=== PATIENT | female | born 1965 | race Caucasian/White ===

== ENCOUNTER 2020-12-01 18:15 | Emergency (ER) | payer OTHER ==
[2020-12-01] MEDS ORDERED: Ibuprofen 800 MG Tab PO ONE (19:43)
--- NOTE | 2020-12-01 19:47 | EDM.PDOC ---
ED [facility] GENERAL MEDICAL PROBLEM - General Chief Complaint: Upper Extremity Injury/Pain Stated Complaint: RT WRIST INJURY Time Seen by Provider: 12/01/20 18:28 Source of Information: Reports: Patient History Limitations: Reports: No Limitations - History of Present Illness INITIAL COMMENTS - FREE TEXT/NARRATIVE: 55-year-old female presents the emergency department after injuring her right wrist. The patient is visiting and it has been staying in a camper out in [facility]. She states she stepped out of her camper and when she stepped off the last step she twisted her ankle and fell backwards catching herself with her right wrist. She states her ankle is sore however she is able to bear weight and does not believe that any significant injury has occurred. Her right wrist however is deformed and she does have a significant amount of pain noted. She states this occurred approximately 2 hours prior to arrival and she did take and put ice on the injury immediately. She has not taken any pain medication however. Right Wrist Pain Score (Numeric/FACES): 7 - Related Data Allergies Allergy/AdvReac Type Severity Reaction Status Date / Time erythromycin base Allergy Nausea Verified 12/01/20 18:28 Home Meds: Home Meds . [No Known Home Meds] 12/01/20 [History] Past Medical History - Past Health History Medical/Surgical History: Denies Medical/Surgical History Social & Family History - Tobacco Use Tobacco Use Status *Q: Never Tobacco User Second Hand Smoke Exposure: No - Recreational Drug Use Recreational Drug Use: No Review of Systems - Review of Systems Review Of Systems: Comprehensive ROS is negative, except as noted in HPI. ED EXAM, GENERAL - Physical Exam Exam: See Below Exam Limited By: No Limitations General Appearance: Alert, WD/WN, Mild Distress Ears: Normal External Exam, Hearing Grossly Normal Nose: Normal Inspection Throat/Mouth: Normal Inspection, Normal Lips, Normal Voice, No Airway Compromise Head: Atraumatic Neck: Normal Inspection, Supple Respiratory/Chest: No Respiratory Distress, No Accessory Muscle Use Cardiovascular: Normal Peripheral Pulses, Regular Rate, Rhythm Peripheral Pulses: 2+: Radial (L), Radial (R) GI/Abdominal: No Distention (Female) Exam: Deferred Rectal (Female) Exam: Deferred Back Exam: Normal Inspection Extremities: Normal Capillary Refill, Limited Range of Motion (Right wrist). No: Normal Inspection (Deformity noted to right forearm), Non-Tender (Right forearm tenderness on the radial side) Neurological: Alert, Oriented, Normal Cognition Psychiatric: Normal Affect, Normal Mood Skin Exam: Warm, Dry, Intact, Normal Color, No Rash Lymphatic: No Adenopathy ED TRAUMA EXTREMITY PROCEDURES - Splinting Right Upper Extremity Splint Site: right forearm Pre-Procedure NV Status: Normal Post-Procedure NV Status: Normal Splint Material: Fiberglass Splint Design: Sugar Tong Applied & Form Fitted By: Provider, Nurse Provider Post-Splint Application NV Check: NV Status Normal, Good Position Complications: No Course - Vital Signs Text/Narrative:: Upon assessment the patient does have some deformity noted to the right distal radial area. CMS is intact to her fingers. She is able to move her fingers. She is able to flex and extend her right wrist however she does not have full range of motion while doing this. I have ordered an x-ray of the right forearm. Last Recorded V/S: Last Vital Signs Temp 96.9 F 12/01/20 18:24 Pulse 88 12/01/20 18:24 Resp 16 12/01/20 18:24 BP 151/73 H 12/01/20 18:24 Pulse Ox 99 12/01/20 18:24 - Orders/Labs/Meds Orders: Active Orders 24 hr Category Date Time Status Forearm 2V Rt [CR] Stat Exams 12/01/20 18:58 Taken DME for Discharge [COMM] Stat Oth 12/01/20 20:20 Ordered Meds: Medications Discontinued Medications Generic Name Dose Route Start Last Admin Trade Name Dannyq PRN Reason Stop Dose Admin Ibuprofen 800 mg 12/01/20 19:43 12/01/20 20:01 Ibuprofen 800 Mg Tab PO 12/01/20 19:44 800 mg ONETIME ONE Administration - Re-Assessments/Exams Free Text/Narrative Re-Assessment/Exam: 12/01/20 19:44 X-ray of right forearm shows a distal radial fracture. This was reviewed by myself and Dr. Vasques. It does appear to be minimally displaced. I have ordered for the patient to receive 800 mg of ibuprofen x1 dose and we will apply a sugar tong splint. 12/01/20 20:21 Sugar tong splint was placed without complication. I have ordered for the patient to have a sling for her right arm to provide stability and prevent any further injury. She is heading back to her home in [place] on Friday. She will need to follow-up with orthopedics next week. She verbalized understanding of this. Departure - Departure Time of Disposition: 20:22 Disposition: Home, Self-Care 01 Condition: Good Clinical Impression: Fracture of radius Qualifiers: Encounter type: initial encounter Radius location: distal Fracture type: closed Fracture morphology: unspecified fracture morphology Laterality: right Qualified Code(s): S52.501A - Unspecified fracture of the lower end of right radius, initial encounter for closed fracture - Discharge Information Instructions: Radial Head Fracture, [id number] Referrals: PCP,None [Primary Care Provider] - Forms: ED Department Discharge Additional Instructions: You were seen in the emergency department after falling and injuring your right forearm. X-ray was completed which did show a fracture of the radius which is minimally displaced. You were given 800 mg of ibuprofen while in the emergency department. A splint was placed on your right forearm and this needs to remain on at all times however you may loosen it over the next 24 hours if it feels snug. It cannot be taken off to bathe. You will need to follow-up with an orthopedic surgeon as soon as you get home. You may take ibuprofen 600 mg alternating with Tylenol 650 mg every 4 hours for the next 48 hours. After that take them as needed. Sepsis Event Note (ED) - Evaluation Sepsis Screening Result: No Definite Risk - Focused Exam Vital Signs: Vital Signs Temp Pulse Resp BP Pulse Ox 12/01/20 18:24 96.9 F 88 16 151/73 H 99 - My Orders Last 24 Hours: My Active Orders 12/01/20 18:58 Forearm 2V Rt [CR] Stat 12/01/20 20:20 DME for Discharge [COMM] Stat - Assessment/Plan Last 24 Hours: My Active Orders 12/01/20 18:58 Forearm 2V Rt [CR] Stat 12/01/20 20:20 DME for Discharge [COMM] Stat
--- NOTE | 2020-12-01 20:50 | CR ---
Right forearm: 2 views of the right forearm were obtained. Comparison: No prior forearm study is available. Distal radial fracture is seen. There is mild posterior displacement of the distal fragment as well as mild posterior impaction causing distal tilt of the radial articular margin. Small fracture is seen within the ulnar styloid process. Surrounding soft tissue swelling is seen. No additional abnormality is appreciated. Impression: 1. Distal radial fracture with displacement and posterior impaction. 2. Ulnar styloid fracture with adjacent soft tissue swelling. Diagnostic code #3
== END 2020-12-01 20:45 | disposition home or self-care (01) ==
LOC: JD.ED 18:15
DX: S52.591A Other fractures of lower end of right radius, initial encounter for closed fracture (principal); M25.539 Pain in unspecified wrist; Z88.1 Allergy status to other antibiotic agents; X50.1XXA Overexertion from prolonged static or awkward postures, initial encounter
CPT/HCPCS: 29125; 73090; 99283; A9270